=== PATIENT | female | born 1950 | race Two or more races ===

== ENCOUNTER 2019-11-12 05:35 | Day surgery (SDC) | payer OTHER ==
[~2019-11-12 05:35] MED LIST: ATORVASTATIN CA10 MG PO; SYNTHROID112 MCG PO
== END 2019-11-12 12:30 | disposition home or self-care (01) ==
LOC: CIR.AMB 05:35 → ADM 10:15 → CIR.AMB 10:15
PROVIDERS: ATTEND Surgery
DX: D17.0 Benign lipomatous neoplasm of skin and subcutaneous tissue of head, face and neck (principal); Z20.828 Contact with and (suspected) exposure to other viral communicable diseases

== ENCOUNTER 2021-04-20 07:30 | Outpatient (CLI) | payer OTHER | END 2021-04-20 07:36 | disposition home or self-care (01) | LOC: SONOGRAMA 07:30 | PROVIDERS: ATTEND Surgery | DX: K80.20 Calculus of gallbladder without cholecystitis without obstruction (principal) ==

== ENCOUNTER 2021-05-06 07:27 | Outpatient (CLI) | payer OTHER | END 2021-05-06 07:28 | disposition home or self-care (01) | LOC: NUCLEAR 07:27 | PROVIDERS: ATTEND Surgery | DX: K80.20 Calculus of gallbladder without cholecystitis without obstruction (principal) | CPT/HCPCS: 78227; A9510 ==

== ENCOUNTER 2021-06-29 06:00 | Day surgery (SDC) | payer OTHER ==
[~2021-06-29 06:00] MED LIST changes: +PROPRANOLOL HCL10 MG PO
== END 2021-06-29 12:40 | disposition home or self-care (01) ==
LOC: CIR.AMB 06:00
PROVIDERS: ATTEND Surgery
DX: K80.10 Calculus of gallbladder with chronic cholecystitis without obstruction (principal); E78.5 Hyperlipidemia, unspecified; Z85.850 Personal history of malignant neoplasm of thyroid

== ENCOUNTER 2021-09-19 17:02 | Emergency (ER) | payer OTHER ==
[~2021-09-19] VITALS: Ht 165.1 cm; Wt 73.5 kg
== END 2021-09-19 22:49 | disposition home or self-care (01) ==
LOC: ER 17:02
DX: R30.0 Dysuria (principal); N39.0 Urinary tract infection, site not specified; R19.7 Diarrhea, unspecified; M54.89 Other dorsalgia